=== PATIENT | male | born 1980 | race Caucasian/White ===

== ENCOUNTER → 2016-07-09 | Outpatient (REF) | payer OTHER ==
[2016-07-09 20:17] LABS: ANION GAP 6 MEQ/L (8-16); BLOOD UREA NITROGEN 11 MG/DL (7-18); CALCIUM LEVEL 8.7 MG/DL (8.5-10.1); CARBON DIOXIDE LEVEL 30 MEQ/L (21-32); CHLORIDE LEVEL 106 MEQ/L (98-107); CREATININE FOR GFR 0.84 MG/DL (0.70-1.30); GLOMERULAR FILTRATION RATE > 60.0 (>60); GLUCOSE, FASTING 104 MG/DL (70-105); POTASSIUM SERUM 4.2 MEQ/L (3.5-5.1); SODIUM LEVEL 142 MEQ/L (136-145)
== END ==
LOC: M SFHCLERA 10:32
PROVIDERS: ATTEND Family Medicine
DX: I10 Essential (primary) hypertension (principal)

== ENCOUNTER → 2016-07-16 | Outpatient (CLI) | payer OTHER | LOC: M SDC 09:34 | PROVIDERS: ATTEND Neurological Surgery | DX: Z53.8 Procedure and treatment not carried out for other reasons (principal) ==

== ENCOUNTER → 2016-08-09 | Outpatient (CLI) | payer OTHER | LOC: M SLEEP HO 08:54 | PROVIDERS: ATTEND Family Medicine | DX: G47.33 Obstructive sleep apnea (adult) (pediatric) (principal) ==

== ENCOUNTER → 2016-09-16 | Outpatient (REF) | payer OTHER | LOC: M SFHCLERA 09:13 | PROVIDERS: ATTEND Family Medicine | DX: L85.8 Other specified epidermal thickening (principal) ==

== ENCOUNTER → 2016-09-16 | Outpatient (CLI) | payer OTHER ==
--- NOTE | 2016-09-16 12:56 | REP ---
Left foot four views: Mineralization and joint spaces are normal. There is no fracture or dislocation. No soft tissue edema. There are small calcaneal plantar and Achilles spurs. Impression: Essentially negative plain film study of the left foot except for small calcaneal spurs. Signed by Low Alicea MD 09/16/2016 12:47 P
== END ==
LOC: M LRY 12:20
PROVIDERS: ATTEND Family Medicine
DX: M77.32 Calcaneal spur, left foot (principal)

== ENCOUNTER 2018-08-29 16:30 | Emergency (ER) | payer OTHER ==
[~2018-08-29] VITALS: Ht 185.4 cm; Wt 136.4 kg
[2018-08-29] MEDS ORDERED: ARIP1TAB6 (16:36)
[2018-08-29] MEDS ORDERED: SERT-138 (16:36)
[2018-08-29] MEDS ORDERED: DIVA250T7 PO (16:36)
[2018-08-29 17:14] LABS: BASO # 0.1 10^3/uL (0.0-0.2); BASO % 0.4 % (0.0-1.0); EOS # 0.2 10^3/uL (0.0-0.50); EOS % 0.9 % (0.0-3.0); HEMATOCRIT 48.9 % (42.0-52.0); HEMOGLOBIN 16.5 g/dl (13.5-17.5); LYMPH % 17.6 % (24.0-44.0); MEAN CORPUSCULAR HEMOGLOBIN 28.2 pg (27.0-33.0); MEAN CORPUSCULAR HGB CONC 33.7 g/dl (32.0-36.5); MEAN CORPUSCULAR VOLUME 83.6 fl (80.0-96.0); MONO # 0.9 10^3/uL (0.0-0.8); MONO % 5.5 % (0.0-5.0); NEUTROPHILS # 12.6 10^3/uL (1.8-7.7); NEUTROPHILS % 74.9 % (36.0-66.0); PLATELET COUNT, AUTOMATED 261 10^3/uL (150-450); RED BLOOD COUNT 5.85 10^6/uL (4.30-6.10); WHITE BLOOD COUNT 16.8 10^3/uL (4.0-10.0)
[2018-08-29 17:21] LABS: AMYLASE 280 U/L (25-115); BLOOD UREA NITROGEN 13 MG/DL (7-18); CALCIUM LEVEL 8.4 MG/DL (8.5-10.1); CARBON DIOXIDE LEVEL 28 MEQ/L (21-32); CHLORIDE LEVEL 105 MEQ/L (98-107); CREATININE FOR GFR 1.23 MG/DL (0.70-1.30); GLOMERULAR FILTRATION RATE > 60.0 (>60); GLUCOSE, FASTING 87 MG/DL (70-100); LIPASE 1167 U/L (73-393); POTASSIUM SERUM 3.7 MEQ/L (3.5-5.1); SODIUM LEVEL 139 MEQ/L (136-145)
[2018-08-29] MEDS ORDERED: NS 1,000 ML IV ONE (17:30)
[2018-08-29] MEDS ORDERED: ISOVUE-370 76% 100ML VIAL (Q9967) As Ordered ONE (17:39)
--- NOTE | 2018-08-29 18:03 | REP ---
Clinical: Central abdominal pain with nausea vomiting and diarrhea. Technique: Axial contrast enhanced images from the lung bases to the pubic symphysis with coronal and sagittal re-formations using 100 ml Isovue 370 intravenous contrast material. Findings: Inflammatory stranding in the upper abdomen with small amount of free fluid extending into the pelvis most likely represents acute pancreatitis. The pancreas itself is normal in parenchymal enhancement without ischemia or necrosis and no drainable collection/pseudocyst or abscess is identified. Cholelithiasis noted. Liver, spleen, bilateral adrenal glands and kidneys are normal. The enteric system is without obstruction or acute inflammatory process. Normal terminal ileum and appendix are identified in the right lower quadrant. Pelvis demonstrates normal bladder and age appropriate prostate/seminal vesicles. Small fat containing left inguinal hernia identified. Lung bases are clear. Impression: 1. Findings most compatible with acute pancreatitis. No associated drainable collection/abscess or pseudocyst. 2. Cholelithiasis. Electronically Signed by Bandar Franklin MD 08/29/2018 05:55 P
[2018-08-29] MEDS ORDERED: KETOROLAC 30 MG/ML VIAL (J1885) IV ONE (19:00)
[2018-08-29 19:18] LABS: CHOLESTEROL LEVEL 146 MG/DL (<200); CHOLESTEROL RISK RATIO 5.615 (<5); HDL CHOLESTEROL 26 MG/DL (>40); LDL CHOLESTEROL 81 MG/DL (<100); NON-HDL-C 120 MG/DL; TRIGLYCERIDES LEVEL 196 MG/DL (<150)
[2018-08-29 20:11] VITALS: BP 129/92
== END 2018-08-29 20:22 | disposition left against medical advice (07) ==
LOC: M ED 16:30
DX: K85.90 Acute pancreatitis without necrosis or infection, unspecified (principal); I10 Essential (primary) hypertension; E78.5 Hyperlipidemia, unspecified; F31.9 Bipolar disorder, unspecified; F17.200 Nicotine dependence, unspecified, uncomplicated; F10.11 Alcohol abuse, in remission; Z79.899 Other long term (current) drug therapy
CPT/HCPCS: 74177; 80048; 80061; 82150; 83690; 85025; 96361; 96374; 99284; J1885; Q9967

== ENCOUNTER 2018-08-30 17:48 | Emergency (ER) | payer OTHER ==
[~2018-08-30] VITALS: Ht 185.4 cm; Wt 136.4 kg
[~2018-08-30 17:48] MED LIST: ARIP1TAB6; DIVA250T7 PO; SERT-138
[2018-08-30] MEDS ORDERED: NS 1,000 ML IV ONE (18:30)
[2018-08-30 18:59] LABS: BASO # 0.1 10^3/uL (0.0-0.2); BASO % 0.5 % (0.0-1.0); EOS # 0.3 10^3/uL (0.0-0.50); EOS % 1.9 % (0.0-3.0); HEMOGLOBIN 15.2 g/dl (13.5-17.5); MEAN CORPUSCULAR HEMOGLOBIN 28.9 pg (27.0-33.0); MEAN CORPUSCULAR HGB CONC 33.8 g/dl (32.0-36.5); MEAN CORPUSCULAR VOLUME 85.6 fl (80.0-96.0); MONO % 7.1 % (0.0-5.0); NEUTROPHILS # 9.1 10^3/uL (1.8-7.7); PLATELET COUNT, AUTOMATED 212 10^3/uL (150-450); RED BLOOD COUNT 5.26 10^6/uL (4.30-6.10); WHITE BLOOD COUNT 13.5 10^3/uL (4.0-10.0)
[2018-08-30 19:26] LABS: AMYLASE 78 U/L (25-115); BLOOD UREA NITROGEN 17 MG/DL (7-18); CALCIUM LEVEL 7.9 MG/DL (8.5-10.1); CARBON DIOXIDE LEVEL 27 MEQ/L (21-32); CHLORIDE LEVEL 107 MEQ/L (98-107); CREATININE FOR GFR 1.02 MG/DL (0.70-1.30); GLOMERULAR FILTRATION RATE > 60.0 (>60); GLUCOSE, FASTING 84 MG/DL (70-100); LIPASE 333 U/L (73-393); POTASSIUM SERUM 3.7 MEQ/L (3.5-5.1); SODIUM LEVEL 142 MEQ/L (136-145)
[2018-08-30 20:01] VITALS: BP 149/82
== END 2018-08-30 20:17 | disposition home or self-care (01) ==
LOC: M ED 17:48
DX: R10.13 Epigastric pain (principal); R11.10 Vomiting, unspecified; R19.7 Diarrhea, unspecified; I10 Essential (primary) hypertension; F31.9 Bipolar disorder, unspecified; Z79.899 Other long term (current) drug therapy; F17.210 Nicotine dependence, cigarettes, uncomplicated

== ENCOUNTER 2021-06-18 12:32 | Inpatient (IN) | payer OTHER ==
[~2021-06-18] VITALS: Ht 185.4 cm; Wt 190.0 kg
[2021-06-18 13:06] LABS: VENOUS BASE EXCESS 1.7 (-2.0-2.0); VENOUS HCO3 29.4 MEQ/L (23.0-27.0); VENOUS O2 SATURATION 81.2 % (60.0-80.0); VENOUS PARTIAL PRESSURE CO2 59.1 mmHg (38.0-50.0); VENOUS PARTIAL PRESSURE O2 48.6 mmHg (30.0-50.0); VENOUS PH 7.314 UNITS (7.330-7.430); VENOUS STANDARD HCO3 25.6 MEQ/L; VENOUS TOTAL CO2 31.2 MEQ/L (24.0-28.0)
[2021-06-18 13:09] LABS: BASO # 0.1 10^3/uL (0.0-0.2); BASO % 0.5 % (0.0-1.0); EOS # 0.3 10^3/uL (0.0-0.5); EOS % 1.9 % (0.0-3.0); HEMATOCRIT 44.9 % (42.0-52.0); HEMOGLOBIN 13.5 g/dl (13.5-17.5); LYMPH # 2.5 10^3/uL (1.5-5.0); MEAN CORPUSCULAR HEMOGLOBIN 26.4 pg (27.0-33.0); MEAN CORPUSCULAR HGB CONC 30.1 g/dl (32.0-36.5); MEAN CORPUSCULAR VOLUME 87.9 fl (80.0-96.0); MONO % 6.2 % (2.0-8.0); NEUTROPHILS # 11.4 10^3/uL (1.5-8.5); NEUTROPHILS % 74.5 % (36.0-66.0); PLATELET COUNT, AUTOMATED 338 10^3/uL (150-450); RED BLOOD COUNT 5.11 10^6/uL (4.30-6.10); WHITE BLOOD COUNT 15.3 10^3/uL (4.0-10.0)
[2021-06-18 13:39] LABS: MB/CK RELATIVE INDEX 1.31 (< OR =4)
[2021-06-18 13:46] LABS: ALT/SGPT 112 U/L (12-78); BILIRUBIN,DIRECT 0.4 MG/DL (0.0-0.2); BILIRUBIN,TOTAL 0.7 MG/DL (0.2-1.0); BLOOD UREA NITROGEN 9 MG/DL (7-18); CALCIUM LEVEL 8.2 MG/DL (8.5-10.1); CARBON DIOXIDE LEVEL 31 MEQ/L (21-32); CHLORIDE LEVEL 107 MEQ/L (98-107); CREATININE FOR GFR 1.03 MG/DL (0.70-1.30); GLOMERULAR FILTRATION RATE > 60.0 (>60); GLUCOSE, FASTING 86 MG/DL (70-100); MAGNESIUM LEVEL 2.2 MG/DL (1.8-2.4); NT-PRO BNP 1949 PG/ML (<125); POTASSIUM SERUM 4.2 MEQ/L (3.5-5.1); SODIUM LEVEL 143 MEQ/L (136-145); TOTAL PROTEIN 6.4 GM/DL (6.4-8.2)
[2021-06-18] MEDS ORDERED: DIGOXIN INJ 0.5 MG/2 ML AMP (J1160) IV ONE (13:50)
[2021-06-18] MEDS ORDERED: METOPROLOL TART 50 MG TAB PO ONE (13:50)
[2021-06-18 14:46] LABS: INR 1.11; PROTHROMBIN TIME 14.7 SECONDS (12.7-14.5)
[2021-06-18 14:47] LABS: PARTIAL THROMBOPLASTIN TIME 26.8 SECONDS (25.9-37.0)
[2021-06-18] MEDS: METOPROLOL 5 MG/5 ML VIAL IV SCH ×3 (15:38→15:59)
[2021-06-18] MEDS ORDERED: MOM 30ML SUSPENSION UDC PO PRN (17:30)
[2021-06-18] MEDS ORDERED: ACETAMINOPHEN TAB 650MG DOSE (2X325MG) PO PRN (17:30)
[2021-06-18] MEDS ORDERED: FUROSEMIDE 40MG/4ML VIAL (J1940) IV ONE (17:45)
[2021-06-18] MEDS ORDERED: HOME MED LIST COMPLETE! XX SCH (17:50)
[2021-06-18] MEDS ORDERED: LORazepam 2 MG/ML VIAL IM STA (18:21)
[2021-06-18 19:35] LABS: CHOLESTEROL LEVEL 140 MG/DL (<200); HDL CHOLESTEROL 25 MG/DL (>40); LDL CHOLESTEROL 87 MG/DL (<100); NON-HDL-C 115 MG/DL; TRIGLYCERIDES LEVEL 142 MG/DL (<150)
[2021-06-18 20:04] LABS: HEMOGLOBIN A1c 6.1 %
[2021-06-18 20:30] VITALS: BP 143/97
[2021-06-18] MEDS: METOPROLOL TART 25 MG TABLET PO SCH (21:04)
[2021-06-18] MEDS: RIVAROXABAN 10 MG TAB (XARELTO) PO SCH (21:04)
[2021-06-19] VITALS (9 sets, daily range): BP systolic 122–162; BP diastolic 42–95; PULSE 150
[2021-06-19] MEDS: METOPROLOL TART 25 MG TABLET PO SCH ×4 (02:21→20:57)
[2021-06-19 05:11] LABS: HEMATOCRIT 44.4 % (42.0-52.0); HEMOGLOBIN 13.3 g/dl (13.5-17.5); MEAN CORPUSCULAR HEMOGLOBIN 26.4 pg (27.0-33.0); MEAN CORPUSCULAR VOLUME 88.3 fl (80.0-96.0); PLATELET COUNT, AUTOMATED 288 10^3/uL (150-450); RED BLOOD COUNT 5.03 10^6/uL (4.30-6.10); WHITE BLOOD COUNT 11.1 10^3/uL (4.0-10.0)
[2021-06-19 05:44] LABS: BLOOD UREA NITROGEN 10 MG/DL (7-18); CALCIUM LEVEL 8.3 MG/DL (8.5-10.1); CARBON DIOXIDE LEVEL 34 MEQ/L (21-32); CHLORIDE LEVEL 104 MEQ/L (98-107); CREATININE FOR GFR 0.91 MG/DL (0.70-1.30); GLOMERULAR FILTRATION RATE > 60.0 (>60); GLUCOSE, FASTING 87 MG/DL (70-100); MAGNESIUM LEVEL 2.1 MG/DL (1.8-2.4); POTASSIUM SERUM 3.9 MEQ/L (3.5-5.1); SODIUM LEVEL 140 MEQ/L (136-145)
[2021-06-19] MEDS ORDERED: ISOVUE-370 76% 100ML VIAL As Ordered ONE (07:58)
[2021-06-19] MEDS: PANTOPRAZOLE 40MG TAB (PROTONIX) PO SCH (09:00)
[2021-06-19] MEDS ORDERED: INFLUENZA QUADRIVALENT PF VACCINE 0.5ML SYRINGE IM ONE (09:00)
[2021-06-19] MEDS ORDERED: FUROSEMIDE 40 MG TAB PO SCH (09:00)
[2021-06-19] MEDS: SUCRALFATE SUSP 1GM/10ML UD PO SCH ×3 (12:29→20:58)
[2021-06-19] MEDS ORDERED: FUROSEMIDE 20MG/2ML VIAL (J1940) IV SCH (15:00)
[2021-06-19] MEDS: RIVAROXABAN 10 MG TAB (XARELTO) PO SCH (17:52)
[2021-06-19] MEDS: LOSARTAN 50MG TABLET PO SCH (23:43)
[2021-06-20] MEDS: METOPROLOL TART 25 MG TABLET PO SCH ×4 (01:21→20:12)
[2021-06-20 04:00] VITALS: BP 158/96
[2021-06-20 05:53] LABS: HEMATOCRIT 43.8 % (42.0-52.0); HEMOGLOBIN 13.4 g/dl (13.5-17.5); MEAN CORPUSCULAR HEMOGLOBIN 26.6 pg (27.0-33.0); MEAN CORPUSCULAR HGB CONC 30.6 g/dl (32.0-36.5); MEAN CORPUSCULAR VOLUME 86.9 fl (80.0-96.0); PLATELET COUNT, AUTOMATED 288 10^3/uL (150-450); RED BLOOD COUNT 5.04 10^6/uL (4.30-6.10); WHITE BLOOD COUNT 10.3 10^3/uL (4.0-10.0)
[2021-06-20 06:14] LABS: BLOOD UREA NITROGEN 11 MG/DL (7-18); CALCIUM LEVEL 8.4 MG/DL (8.5-10.1); CARBON DIOXIDE LEVEL 35 MEQ/L (21-32); CHLORIDE LEVEL 103 MEQ/L (98-107); CREATININE FOR GFR 0.93 MG/DL (0.70-1.30); GLOMERULAR FILTRATION RATE > 60.0 (>60); GLUCOSE, FASTING 98 MG/DL (70-100); POTASSIUM SERUM 3.8 MEQ/L (3.5-5.1); SODIUM LEVEL 141 MEQ/L (136-145)
[2021-06-20 08:00] VITALS: BP 131/58
[2021-06-20] MEDS: SUCRALFATE SUSP 1GM/10ML UD PO SCH ×4 (09:35→21:53)
[2021-06-20] MEDS: SPIRONOLACTONE 25 MG TAB PO SCH (09:35)
[2021-06-20] MEDS: PANTOPRAZOLE 40MG TAB (PROTONIX) PO SCH (09:35)
[2021-06-20] MEDS: DOCUSATE SODIUM 100MG CAPSULE PO SCH ×2 (11:01→21:53)
[2021-06-20 12:00] VITALS: BP 134/89
[2021-06-20 12:17] LABS: HEPATITIS B CORE ANTIBODY IGM NEGATIVE (NEGATIVE); HEPATITIS B SURFACE ANTIGEN NEGATIVE (NEGATIVE); HEPATITIS C VIRUS ABY INDEX 0.1 INDEX (<0.8)
[2021-06-20] MEDS: FUROSEMIDE 40MG/4ML VIAL (J1940) IV SCH (15:24)
[2021-06-20] MEDS: RIVAROXABAN 10 MG TAB (XARELTO) PO SCH (18:09)
[2021-06-20 19:47] VITALS: BP 161/94
[2021-06-20] MEDS: AMIODARONE 200 MG TAB (PACERONE) PO SCH (21:53)
[2021-06-20] MEDS: SENNA 8.6 MG TAB (SENOKOT) PO SCH (21:53)
[2021-06-20] MEDS: LOSARTAN 50MG TABLET PO SCH (22:55)
[2021-06-21] VITALS (7 sets, daily range): BP systolic 130–182; BP diastolic 52–96
[2021-06-21] MEDS: METOPROLOL TART 25 MG TABLET PO SCH ×4 (01:31→20:57)
[2021-06-21 05:10] LABS: HEMATOCRIT 42.1 % (42.0-52.0); MEAN CORPUSCULAR HEMOGLOBIN 26.1 pg (27.0-33.0); MEAN CORPUSCULAR HGB CONC 30.9 g/dl (32.0-36.5); MEAN CORPUSCULAR VOLUME 84.5 fl (80.0-96.0); PLATELET COUNT, AUTOMATED 280 10^3/uL (150-450); RED BLOOD COUNT 4.98 10^6/uL (4.30-6.10); WHITE BLOOD COUNT 8.6 10^3/uL (4.0-10.0)
[2021-06-21 05:34] LABS: ALT/SGPT 79 U/L (12-78); BILIRUBIN,TOTAL 0.7 MG/DL (0.2-1.0); BLOOD UREA NITROGEN 12 MG/DL (7-18); CALCIUM LEVEL 8.6 MG/DL (8.5-10.1); CARBON DIOXIDE LEVEL 33 MEQ/L (21-32); CHLORIDE LEVEL 103 MEQ/L (98-107); CREATININE FOR GFR 0.88 MG/DL (0.70-1.30); GLOMERULAR FILTRATION RATE > 60.0 (>60); GLUCOSE, FASTING 99 MG/DL (70-100); POTASSIUM SERUM 3.7 MEQ/L (3.5-5.1); SODIUM LEVEL 142 MEQ/L (136-145); TOTAL PROTEIN 6.8 GM/DL (6.4-8.2)
[2021-06-21] MEDS ORDERED: XARE20TA PO (07:30)
[2021-06-21] MEDS ORDERED: SUCR1ORA PO (07:30)
[2021-06-21] MEDS ORDERED: COLA100C5 PO (07:30)
[2021-06-21] MEDS ORDERED: AMIO200T49 PO (07:30)
[2021-06-21] MEDS ORDERED: COZA50TA PO (07:30)
[2021-06-21] MEDS ORDERED: TORS20TA2 PO (07:30)
[2021-06-21] MEDS ORDERED: TOPR100T PO (07:30)
[2021-06-21] MEDS ORDERED: SENN18TA PO (07:30)
[2021-06-21] MEDS ORDERED: PANT40TA29 PO (07:30)
[2021-06-21] MEDS ORDERED: ALDA25TA2 PO (07:30)
[2021-06-21] MEDS: PANTOPRAZOLE 40MG TAB (PROTONIX) PO SCH (08:19)
[2021-06-21] MEDS: SUCRALFATE SUSP 1GM/10ML UD PO SCH ×4 (08:19→20:57)
[2021-06-21] MEDS: AMIODARONE 200 MG TAB (PACERONE) PO SCH ×2 (08:19→20:57)
[2021-06-21] MEDS: SPIRONOLACTONE 25 MG TAB PO SCH (08:19)
[2021-06-21] MEDS: DOCUSATE SODIUM 100MG CAPSULE PO SCH ×2 (08:20→20:57)
[2021-06-21] MEDS: LOSARTAN 50MG TABLET PO SCH (13:05)
[2021-06-21] MEDS: FUROSEMIDE 40MG/4ML VIAL (J1940) IV SCH (14:27)
[2021-06-21] MEDS: RIVAROXABAN 10 MG TAB (XARELTO) PO SCH (17:51)
[2021-06-21] MEDS: SENNA 8.6 MG TAB (SENOKOT) PO SCH (20:57)
[2021-06-22] VITALS: BP 119/59
[2021-06-22] MEDS ORDERED: LORazepam 2 MG/ML VIAL IV STA (01:05)
[2021-06-22] MEDS: METOPROLOL TART 25 MG TABLET PO SCH ×2 (02:47→08:55)
[2021-06-22 03:52] VITALS: BP 136/90
[2021-06-22 04:00] VITALS: BP 130/66
[2021-06-22 06:36] LABS: HEMATOCRIT 45.2 % (42.0-52.0); HEMOGLOBIN 13.6 g/dl (13.5-17.5); MEAN CORPUSCULAR HEMOGLOBIN 26.5 pg (27.0-33.0); MEAN CORPUSCULAR HGB CONC 30.1 g/dl (32.0-36.5); MEAN CORPUSCULAR VOLUME 87.9 fl (80.0-96.0); PLATELET COUNT, AUTOMATED 284 10^3/uL (150-450); RED BLOOD COUNT 5.14 10^6/uL (4.30-6.10); WHITE BLOOD COUNT 9.5 10^3/uL (4.0-10.0)
[2021-06-22] MEDS ORDERED: ELIQ5TAB PO (06:59)
[2021-06-22 07:18] LABS: ALBUMIN 3.1 GM/DL (3.2-5.2); ALT/SGPT 86 U/L (12-78); BILIRUBIN,TOTAL 0.6 MG/DL (0.2-1.0); BLOOD UREA NITROGEN 12 MG/DL (7-18); CALCIUM LEVEL 8.8 MG/DL (8.5-10.1); CARBON DIOXIDE LEVEL 36 MEQ/L (21-32); CHLORIDE LEVEL 103 MEQ/L (98-107); CREATININE FOR GFR 0.95 MG/DL (0.70-1.30); GLOMERULAR FILTRATION RATE > 60.0 (>60); GLUCOSE, FASTING 83 MG/DL (70-100); NT-PRO BNP 1592 PG/ML (<125); POTASSIUM SERUM 4.3 MEQ/L (3.5-5.1); SODIUM LEVEL 142 MEQ/L (136-145); TOTAL PROTEIN 7.3 GM/DL (6.4-8.2)
[2021-06-22] MEDS: SUCRALFATE SUSP 1GM/10ML UD PO SCH (07:47)
[2021-06-22 08:05] VITALS: BP 134/68
[2021-06-22] MEDS: PANTOPRAZOLE 40MG TAB (PROTONIX) PO SCH (08:54)
[2021-06-22 08:55] VITALS: BP 134/68
[2021-06-22] MEDS: SPIRONOLACTONE 25 MG TAB PO SCH (08:55)
[2021-06-22] MEDS: LOSARTAN 50MG TABLET PO SCH (08:55)
[2021-06-22] MEDS: AMIODARONE 200 MG TAB (PACERONE) PO SCH (08:55)
[2021-06-22] MEDS: DOCUSATE SODIUM 100MG CAPSULE PO SCH (08:55)
== END 2021-06-22 12:00 | disposition home health service (06) | DRG 205 ==
LOC: M ED 12:32 → M ED INP 17:29 → ENRESERV 18:29 → M PCU 20:32
PROVIDERS: ADMIT Internal Medicine; ATTEND Internal Medicine
DX: I42.8 Other cardiomyopathies (principal); I50.23 Acute on chronic systolic (congestive) heart failure; I27.81 Cor pulmonale (chronic); E66.2 Morbid (severe) obesity with alveolar hypoventilation; Z68.43 Body mass index [BMI] 50.0-59.9, adult; I48.92 Unspecified atrial flutter; K76.0 Fatty (change of) liver, not elsewhere classified; I11.0 Hypertensive heart disease with heart failure; R16.0 Hepatomegaly, not elsewhere classified; F17.210 Nicotine dependence, cigarettes, uncomplicated; F31.9 Bipolar disorder, unspecified; R74.01 Elevation of levels of liver transaminase levels; R00.0 Tachycardia, unspecified; R10.13 Epigastric pain; K59.00 Constipation, unspecified; R07.9 Chest pain, unspecified

== ENCOUNTER → 2021-07-17 | Outpatient (REF) | payer OTHER ==
[~2021-07-17] MED LIST changes: +ALDA25TA2 PO; +AMIO200T49 PO; +COLA100C5 PO; +COZA50TA PO; +ELIQ5TAB PO; +PANT40TA29 PO; +SENN18TA PO; +SUCR1ORA PO; +TOPR100T PO; +TORS20TA2 PO; +XARE20TA PO
[2021-07-17 12:12] LABS: BLOOD UREA NITROGEN 13 MG/DL (7-18); CALCIUM LEVEL 8.9 MG/DL (8.5-10.1); CARBON DIOXIDE LEVEL 26 MEQ/L (21-32); CHLORIDE LEVEL 105 MEQ/L (98-107); CREATININE FOR GFR 0.79 MG/DL (0.70-1.30); GLOMERULAR FILTRATION RATE > 60.0 (>60); GLUCOSE, FASTING 64 MG/DL (70-100); SODIUM LEVEL 141 MEQ/L (136-145)
== END ==
LOC: M SHH 10:12
PROVIDERS: ATTEND Internal Medicine Cardiovascular Disease
DX: I48.3 Typical atrial flutter (principal); I50.20 Unspecified systolic (congestive) heart failure

== ENCOUNTER → 2021-10-24 | Outpatient (REF) | payer OTHER | LOC: M SFHCDERM 13:07 | PROVIDERS: ATTEND Nurse Practitioner Family | DX: L57.0 Actinic keratosis (principal) ==

== ENCOUNTER → 2022-10-03 | Outpatient (REF) | payer OTHER ==
[~2022-10-03] MED LIST changes: -COZA50TA PO; +GABA-1171 PO; +LOSA-528 PO; +LOSA100T46 PO; +PACE200T PO; +SENN-111 PO; -SENN18TA PO
== END ==
LOC: M SFHCDERM 12:19
PROVIDERS: ATTEND Nurse Practitioner Family
DX: D49.2 Neoplasm of unspecified behavior of bone, soft tissue, and skin (principal); B07.9 Viral wart, unspecified

== ENCOUNTER → 2023-08-08 | Outpatient (CLI) | payer OTHER ==
[~2023-08-08] MED LIST changes: +DOCU100C16 PO; +GABA-282 PO; +LORA-1041 PO; +METO1TAB33 PO; +SPIR-10 PO
== END ==
LOC: M SLEEP HO 10:46
PROVIDERS: ATTEND Family Medicine
DX: R06.83 Snoring (principal)

== ENCOUNTER 2023-09-22 08:38 | Day surgery (SDC) | payer OTHER ==
[~2023-09-22] VITALS: Ht 185.4 cm; Wt 192.4 kg
[~2023-09-22 08:38] MED LIST changes: +LR 1,000 ML IV SCH
[2023-09-22] MEDS: FLURBIPROFEN 0.03% OPHTH SOLN 2.5 ML OS SCH (10:31)
[2023-09-22] MEDS: PHENYLEPHRINE 2.5% OPHTH SOL 2ML OS SCH (10:31)
[2023-09-22] MEDS: TETRACAINE 0.5% OPHTH SOLN 4ML OS SCH (10:31)
[2023-09-22] MEDS: ATROPINE SULFATE 1% OPHTH SOLN 2ML BTL OS SCH (10:31)
[2023-09-22] MEDS ORDERED: MIDAZOLAM INJ 2MG/2ML VIAL As Ordered ONE (11:40)
[2023-09-22] MEDS: LIDOCAINE 1% SDV 5ML VIAL As Ordered ONE (11:50)
[2023-09-22] MEDS: TRYPAN BLUE 0.06 % 2.25 ML OPHTH SYR (VISIONBLUE) As Ordered ONE (11:50)
[2023-09-22] MEDS: CEFUROXIME 1MG/0.1ML INTRACAMERAL INJ As Ordered ONE (11:50)
[2023-09-22] MEDS: CARBACHOL 0.01% OPHTH SOLN 1.5ML VIAL As Ordered ONE (12:02)
[2023-09-22 12:16] VITALS: BP 139/76; TEMP 98.1; O2SAT 96
== END 2023-09-22 13:15 | disposition home or self-care (01) ==
LOC: M SDC 08:38
PROVIDERS: ATTEND Ophthalmology
DX: H25.22 Age-related cataract, morgagnian type, left eye (principal); I48.91 Unspecified atrial fibrillation; I10 Essential (primary) hypertension; E78.5 Hyperlipidemia, unspecified; K21.9 Gastro-esophageal reflux disease without esophagitis; F31.9 Bipolar disorder, unspecified; F32.A Depression, unspecified; F41.9 Anxiety disorder, unspecified; G47.33 Obstructive sleep apnea (adult) (pediatric); Z79.899 Other long term (current) drug therapy; Z79.01 Long term (current) use of anticoagulants; F12.10 Cannabis abuse, uncomplicated; F17.200 Nicotine dependence, unspecified, uncomplicated
CPT/HCPCS: 66982; J0697; J2250; V2632

== ENCOUNTER 2023-11-14 06:58 | Emergency (ER) | payer OTHER ==
[~2023-11-14] VITALS: Ht 185.4 cm; Wt 186.4 kg
[~2023-11-14 06:58] MED LIST changes: -LR 1,000 ML IV SCH
[2023-11-14 09:18] LABS: BASO # 0.1 10^3/uL (0.0-0.2); BASO % 0.5 % (0.0-1.0); EOS # 0.2 10^3/uL (0.0-0.5); EOS % 1.4 % (0.0-3.0); HEMATOCRIT 45.8 % (42.0-52.0); HEMOGLOBIN 15.1 g/dl (13.5-17.5); LYMPH # 2.4 10^3/uL (1.5-5.0); LYMPH % 17.9 % (24.0-44.0); MEAN CORPUSCULAR HEMOGLOBIN 26.8 pg (27.0-33.0); MEAN CORPUSCULAR VOLUME 81.2 fl (80.0-96.0); MONO # 0.8 10^3/uL (0.0-0.8); MONO % 6.1 % (2.0-8.0); NEUTROPHILS # 9.7 10^3/uL (1.5-8.5); NEUTROPHILS % 72.9 % (36.0-66.0); PLATELET COUNT, AUTOMATED 246 10^3/uL (150-450); RED BLOOD COUNT 5.64 10^6/uL (4.30-6.10); WHITE BLOOD COUNT 13.3 10^3/uL (4.0-10.0)
[2023-11-14 09:24] LABS: ERYTHROCYTE SEDIMENTATION RATE 47 mm/hr (0-15)
[2023-11-14 09:51] LABS: URIC ACID 15.7 MG/DL (3.7-9.2)
[2023-11-14 09:53] LABS: BLOOD UREA NITROGEN 16 MG/DL (9-23); CALCIUM LEVEL 8.5 MG/DL (8.5-10.1); CARBON DIOXIDE LEVEL 35 MMOL/L (20-31); CHLORIDE LEVEL 95 MMOL/L (98-107); CREATININE FOR GFR 1.13 MG/DL (0.70-1.30); GLOMERULAR FILTRATION RATE > 60.0 (>60); GLUCOSE, FASTING 116 MG/DL (60-100); POTASSIUM SERUM 3.2 MMOL/L (3.5-5.1); SODIUM LEVEL 135 MMOL/L (136-145)
[2023-11-14] MEDS ORDERED: PRED20TA PO (10:44)
[2023-11-14] MEDS ORDERED: CEPH500C PO (10:44)
[2023-11-14 11:07] VITALS: BP 118/72; TEMP 99.3; O2SAT 96
[2023-11-14] MEDS: NORCO, ANEXSIA 5/325MG TABLET (HYDROcodone/ACETAMINOPHEN) PO ONE (11:15)
[2023-11-14] MEDS: predniSONE 20 MG TAB PO ONE (11:16)
== END 2023-11-14 11:27 | disposition home or self-care (01) ==
LOC: M ED 06:58 → EDBD 06:58 → M ED 11:27
DX: M25.572 Pain in left ankle and joints of left foot (principal); E79.0 Hyperuricemia without signs of inflammatory arthritis and tophaceous disease; D72.829 Elevated white blood cell count, unspecified; I48.91 Unspecified atrial fibrillation; K21.9 Gastro-esophageal reflux disease without esophagitis; G47.33 Obstructive sleep apnea (adult) (pediatric); Z79.01 Long term (current) use of anticoagulants; Z79.52 Long term (current) use of systemic steroids; Z79.899 Other long term (current) drug therapy
CPT/HCPCS: 36415; 73630; 80048; 84550; 85025; 85652; 86140; 93005; 96374; 96375; 99284; J7512